=== PATIENT | male | born 1985 | race Caucasian/White ===

== ENCOUNTER 2024-06-29 08:31 | Emergency (ER) | payer OTHER ==
[~2024-06-29] VITALS: Ht 152.4 cm; Wt 76.3 kg
[2024-06-29 09:15] LABS: BASO # 0.1 10^3/uL (0.0-0.2); BASO % 0.4 % (0.0-1.0); EOS # 0.1 10^3/uL (0.0-0.5); EOS % 0.6 % (0.0-3.0); HEMATOCRIT 45.8 % (42.0-52.0); LYMPH # 1.4 10^3/uL (1.5-5.0); LYMPH % 9.8 % (24.0-44.0); MEAN CORPUSCULAR HGB CONC 34.9 g/dl (32.0-36.5); MEAN CORPUSCULAR VOLUME 91.6 fl (80.0-96.0); MONO # 0.9 10^3/uL (0.0-0.8); MONO % 6.3 % (2.0-8.0); NEUTROPHILS # 11.6 10^3/uL (1.5-8.5); NEUTROPHILS % 82.5 % (36.0-66.0); PLATELET COUNT, AUTOMATED 294 10^3/uL (150-450)
[2024-06-29] MEDS ORDERED: ISOVUE-370 76% 100ML VIAL As Ordered ONE (09:33)
[2024-06-29 09:39] LABS: CK-MB VALUE MASS 1.3 NG/ML (<3.6)
[2024-06-29 09:40] LABS: LIPASE 50 U/L (12-53)
[2024-06-29 09:42] LABS: ALKALINE PHOSPHATASE 51 U/L (46-116); ALT/SGPT 15 U/L (7.0-40); AST/SGOT 19 U/L (<34); BILIRUBIN,DIRECT 0.2 MG/DL (<0.4); BILIRUBIN,TOTAL 0.7 MG/DL (0.3-1.2); BLOOD UREA NITROGEN 8 MG/DL (9-23); CALCIUM LEVEL 8.6 MG/DL (8.5-10.1); CARBON DIOXIDE LEVEL 25 MMOL/L (20-31); CHLORIDE LEVEL 107 MMOL/L (98-107); CREATININE FOR GFR 0.69 MG/DL (0.70-1.30); GLOMERULAR FILTRATION RATE > 60.0 (>60); GLUCOSE, FASTING 111 MG/DL (60-100); POTASSIUM SERUM 4.5 MMOL/L (3.5-5.1); SODIUM LEVEL 139 MMOL/L (136-145); TOTAL PROTEIN 7.3 G/DL (5.7-8.2)
[2024-06-29 09:44] LABS: FREE T4 1.36 NG/DL (0.89-1.76); THYROID STIMULATING HORMONE 1.485 uIU/ML (0.55-4.78)
[2024-06-29 09:50] LABS: CPK CREATINE PHOSPHOKINASE 217 U/L (46-171); MB/CK RELATIVE INDEX 0.59 (< OR =4)
[2024-06-29 10:41] LABS: CK-MB VALUE MASS 1.1 NG/ML (<3.6)
[2024-06-29 10:48] LABS: CPK CREATINE PHOSPHOKINASE 225 U/L (46-171); MB/CK RELATIVE INDEX 0.48 (< OR =4)
[2024-06-29 11:15] VITALS: BP 123/83; O2SAT 98
[2024-06-29 11:28] VITALS: TEMP 98.2
== END 2024-06-29 11:30 | disposition home or self-care (01) ==
LOC: M ED 08:31
DX: R07.9 Chest pain, unspecified (principal); R06.02 Shortness of breath; F17.200 Nicotine dependence, unspecified, uncomplicated; F10.10 Alcohol abuse, uncomplicated
CPT/HCPCS: 36415; 71045; 71275; 80047; 80048; 80076; 82550; 82553; 83690; 84439; 84443; 84484; 85025; 87486; 87581; 87633; 87798; 93005; 93041; 94760; 99285; Q9967

== ENCOUNTER 2024-07-27 09:36 | Emergency (ER) | payer OTHER ==
[~2024-07-27] VITALS: Ht 152.4 cm; Wt 72.7 kg
[2024-07-27 09:45] VITALS: TEMP 97.3
[2024-07-27] MEDS ORDERED: ISOVUE-370 76% 100ML VIAL As Ordered ONE (10:26)
[2024-07-27 10:38] LABS: BASO # 0.1 10^3/uL (0.0-0.2); EOS # 0.2 10^3/uL (0.0-0.5); HEMATOCRIT 41.9 % (42.0-52.0); HEMOGLOBIN 14.6 g/dl (13.5-17.5); LYMPH # 1.4 10^3/uL (1.5-5.0); LYMPH % 23.7 % (24.0-44.0); MEAN CORPUSCULAR HEMOGLOBIN 32.1 pg (27.0-33.0); MEAN CORPUSCULAR HGB CONC 34.8 g/dl (32.0-36.5); MEAN CORPUSCULAR VOLUME 92.1 fl (80.0-96.0); MONO # 0.5 10^3/uL (0.0-0.8); MONO % 8.9 % (2.0-8.0); NEUTROPHILS # 3.6 10^3/uL (1.5-8.5); NEUTROPHILS % 62.9 % (36.0-66.0); PLATELET COUNT, AUTOMATED 261 10^3/uL (150-450); RED BLOOD COUNT 4.55 10^6/uL (4.30-6.10); WHITE BLOOD COUNT 5.8 10^3/uL (4.0-10.0)
[2024-07-27 10:47] LABS: CK-MB VALUE MASS < 1.0 NG/ML (<3.6); LIPASE 52 U/L (12-53)
[2024-07-27 10:49] LABS: ALBUMIN 3.7 G/DL (3.2-5.2); ALKALINE PHOSPHATASE 42 U/L (46-116); ALT/SGPT 14 U/L (7.0-40); AST/SGOT 12 U/L (<34); BILIRUBIN,DIRECT 0.1 MG/DL (<0.4); BILIRUBIN,TOTAL 0.5 MG/DL (0.3-1.2); BLOOD UREA NITROGEN 8 MG/DL (9-23); CARBON DIOXIDE LEVEL 25 MMOL/L (20-31); CHLORIDE LEVEL 111 MMOL/L (98-107); CREATININE FOR GFR 0.65 MG/DL (0.70-1.30); GLOMERULAR FILTRATION RATE > 60.0 (>60); GLUCOSE, FASTING 103 MG/DL (60-100); POTASSIUM SERUM 4.5 MMOL/L (3.5-5.1); SODIUM LEVEL 139 MMOL/L (136-145); TOTAL PROTEIN 6.8 G/DL (5.7-8.2)
[2024-07-27 10:51] LABS: FREE T4 1.34 NG/DL (0.89-1.76); THYROID STIMULATING HORMONE 1.113 uIU/ML (0.55-4.78)
[2024-07-27 10:52] LABS: CPK CREATINE PHOSPHOKINASE 132 U/L (46-171); MB/CK RELATIVE INDEX 0.75 (< OR =4)
[2024-07-27 13:27] LABS: CK-MB VALUE MASS < 1.0 NG/ML (<3.6)
[2024-07-27 13:28] LABS: CPK CREATINE PHOSPHOKINASE 115 U/L (46-171); MB/CK RELATIVE INDEX 0.86 (< OR =4)
[2024-07-27 13:45] VITALS: BP 141/78; O2SAT 97
== END 2024-07-27 14:12 | disposition home or self-care (01) ==
LOC: EDBD 09:36 → M ED 09:36
DX: R07.9 Chest pain, unspecified (principal); S20.211A Contusion of right front wall of thorax, initial encounter; S20.214A Contusion of middle front wall of thorax, initial encounter; K57.30 Diverticulosis of large intestine without perforation or abscess without bleeding; I49.9 Cardiac arrhythmia, unspecified; I45.10 Unspecified right bundle-branch block; Y04.0XXA Assault by unarmed brawl or fight, initial encounter; Y92.9 Unspecified place or not applicable; Y93.89 Activity, other specified; Y99.9 Unspecified external cause status
CPT/HCPCS: 36415; 71045; 71275; 74177; 80047; 80048; 80076; 82550; 82553; 83690; 84439; 84443; 84484; 85025; 93005; 93041; 94760; 99285; Q9967

== ENCOUNTER 2024-11-17 06:43 | Day surgery (SDC) | payer OTHER ==
[~2024-11-17] VITALS: Ht 152.4 cm; Wt 77.5 kg
[~2024-11-17 06:43] MED LIST: NAPR-885 PO; OMEP40CA5 PO
[2024-11-17] MEDS ORDERED: propofoL 200 MG/20 ML VIAL As Ordered ONE (06:59)
[2024-11-17] MEDS ORDERED: ONDANSETRON 4MG 2ML VIAL As Ordered ONE (06:59)
[2024-11-17] MEDS ORDERED: MIDAZOLAM INJ 2MG/2ML VIAL As Ordered ONE (06:59)
[2024-11-17] MEDS ORDERED: LIDOCAINE 2% 100MG/5ML SDV (FOR ANES.) As Ordered ONE (06:59)
[2024-11-17] MEDS ORDERED: NS (Normal Saline) 0.9% 1,000 ML IV SCH (07:20)
[2024-11-17] MEDS ORDERED: ACETAMINOPHEN 1000MG/100ML IV BAG As Ordered ONE (07:44)
[2024-11-17] MEDS: ceFAZolin SOD 2 GM in IV 1 EA IV ONE (08:20)
[2024-11-17] MEDS: LIDOCAINE 1% SDV 30ML VIAL As Ordered ONE (08:31)
[2024-11-17 08:49] VITALS: BP 113/62; TEMP 96.7; O2SAT 99
== END 2024-11-17 09:37 | disposition home or self-care (01) ==
LOC: M SDC 06:43
PROVIDERS: ATTEND Podiatrist Foot & Ankle Surgery
DX: M72.2 Plantar fascial fibromatosis (principal)
CPT/HCPCS: 29893; J0131; J0665; J0690; J2250; J2405

== ENCOUNTER 2025-06-01 10:40 | Day surgery (SDC) | payer OTHER ==
[~2025-06-01] VITALS: Ht 152.4 cm; Wt 70.9 kg
[2025-06-01] MEDS: LR 1,000 ML IV SCH (11:17)
[2025-06-01] MEDS ORDERED: MIDAZOLAM INJ 2 MG/2 ML VIAL As Ordered ONE (12:26)
[2025-06-01] MEDS: ceFAZolin SOD 2 GM IV ONCE IV ONE (12:34)
[2025-06-01] MEDS: LIDOCAINE 1% MDV 20 ML VIAL As Ordered ONE (12:35)
[2025-06-01 13:54] VITALS: BP 136/91; TEMP 97.3; O2SAT 98
== END 2025-06-01 14:09 | disposition home or self-care (01) ==
LOC: M SDC 10:40
PROVIDERS: ATTEND Podiatrist Foot & Ankle Surgery
DX: M72.2 Plantar fascial fibromatosis (principal); F17.290 Nicotine dependence, other tobacco product, uncomplicated
CPT/HCPCS: 28008; J0665; J0690; J2250; J3010